=== PATIENT | female | born 1935 | race Caucasian/White ===

== ENCOUNTER 2018-07-01 10:51 | Inpatient (IN) | payer MEDICARE, BC ==
[2018-07-01] VITALS (10 sets, daily range): BP systolic 112–150; BP diastolic 55–76; PULSE 82–91; TEMP 98.2–99.1
[~2018-07-01] VITALS: Ht 152.4 cm; Wt 81.7 kg
[~2018-07-01 10:51] MED LIST: ASPIRIN 81M81 MG/TA2 PO; ASPIRIN E.C. 8181 MG PO; CORDARONE200 MG/TAB PO; FLONASEALLERGY NS; K-DUR 10 MEQ T10 MEQ PO; LASIX 20MG TABL20 MG PO; MAG-OX 400400 MG/TAB PO; MULTIVITAMIN1 CTB PO; NAPROSYN500 MG PO; NEULASTA 66 MG/0.6 M SC; PERSERVISION; PRESERVISION1 SGL PO; PRINIVIL2.5 MG PO; PRINIVIL20 MG PO; TOPROL XL 25MG25 MG PO; TOPROL XL 50MG50 MG PO; TYLENOL 325MG325 MG PO; XARELTO15 MG PO; ZOFRAN 4MG T4 MG/TAB PO
[2018-07-02] VITALS (14 sets, daily range): BP systolic 102–152; BP diastolic 50–98; PULSE 74–86; TEMP 97.6–98.4
[2018-07-02 05:50] LABS: BASO % 0.1 % (0.0-2.0); EOS # 0.1 (0.0-0.7); EOS % 1.6 % (0-4.0); GRAN # 6.8 (1.4-6.5); GRAN % 75.6 % (42.2-75.2); HEMOGLOBIN 12.2 g/dl (12.5-16.0); LYMPH # 1.3 (1.2-3.4); LYMPH % 14.1 % (20.0-51.0); MEAN CELL VOLUME 88 fl (80.0-100.0); MEAN CORPUSCULAR HEMOGLOBIN 29 pg (27.0-31.0); MEAN CORPUSCULAR HGB CONC 33 g/dl (33.0-37.0); MEAN PLATELET VOLUME 11.9 fl (7.4-10.4); MONO # 0.8 (0.1-0.6); MONO % 8.3 % (1.7-9.3); PLATELET COUNT 172 K/mm3 (130-400); RED BLOOD COUNT 4.16 M/mm3 (4.10-5.30); REDCELL DISTRIBUTION WIDTH-CV 14.3 % (11.5-14.5)
[2018-07-02 05:54] LABS: HEMATOCRIT 36.6 % (37.0-47.0)
[2018-07-02 05:58] LABS: ALBUMIN 3.1 gm/dL (3.5-5.0); BILIRUBIN,TOTAL 1.7 mg/dL (0.0-1.0); CALCIUM 8.1 mg/dL (8.4-10.2); CREATININE, serum 0.59 mg/dL (0.52-1.25); POTASSIUM 3.6 mmol/L (3.4-5.0); TOTAL PROTEIN 6.5 gm/dL (6.4-8.2)
[2018-07-02 06:00] LABS: INR 1.2 (0.8-3.0); PROTHROMBIN TIME 13.7 SECONDS (9.7-12.8)
[2018-07-02 06:07] LABS: BILIRUBIN,DIRECT 0.6 mg/dL (0.0-0.4)
[2018-07-03 04:04] VITALS: BP 130/54; PULSE 86; TEMP 99.1
[2018-07-03 06:02] LABS: BASO % 0.1 % (0.0-2.0); EOS # 0.1 (0.0-0.7); EOS % 1.9 % (0-4.0); GRAN # 4.9 (1.4-6.5); GRAN % 71.2 % (42.2-75.2); HEMATOCRIT 34.8 % (37.0-47.0); HEMOGLOBIN 11.2 g/dl (12.5-16.0); LYMPH # 1.1 (1.2-3.4); MEAN CELL VOLUME 89 fl (80.0-100.0); MEAN CORPUSCULAR HEMOGLOBIN 29 pg (27.0-31.0); MEAN CORPUSCULAR HGB CONC 32 g/dl (33.0-37.0); MONO # 0.7 (0.1-0.6); MONO % 10.5 % (1.7-9.3); PLATELET COUNT 188 K/mm3 (130-400); RED BLOOD COUNT 3.92 M/mm3 (4.10-5.30); REDCELL DISTRIBUTION WIDTH-CV 14.4 % (11.5-14.5)
[2018-07-03 06:17] LABS: ALBUMIN 2.8 gm/dL (3.5-5.0); BILIRUBIN,TOTAL 0.9 mg/dL (0.0-1.0); CALCIUM 8.1 mg/dL (8.4-10.2); CREATININE, serum 0.61 mg/dL (0.52-1.25); POTASSIUM 3.8 mmol/L (3.4-5.0); TOTAL PROTEIN 6.1 gm/dL (6.4-8.2)
[2018-07-03 09:00] VITALS: BP 105/53; PULSE 80; TEMP 98.7
[2018-07-03 13:00] VITALS: BP 132/70; PULSE 79; TEMP 98.3
[2018-07-03 16:00] VITALS: BP 108/58; PULSE 78; TEMP 98.1
[2018-07-03 19:23] VITALS: BP 107/42; PULSE 76; TEMP 98.2
[2018-07-04 04:07] VITALS: BP 135/60; PULSE 69; TEMP 98.2
[2018-07-04 05:53] LABS: BASO % 0.3 % (0.0-2.0); EOS # 0.3 (0.0-0.7); EOS % 4.5 % (0-4.0); GRAN # 4.4 (1.4-6.5); GRAN % 66.2 % (42.2-75.2); LYMPH # 1.2 (1.2-3.4); LYMPH % 17.7 % (20.0-51.0); MEAN CELL VOLUME 89 fl (80.0-100.0); MEAN CORPUSCULAR HEMOGLOBIN 29 pg (27.0-31.0); MEAN CORPUSCULAR HGB CONC 32 g/dl (33.0-37.0); MEAN PLATELET VOLUME 11.7 fl (7.4-10.4); MONO # 0.7 (0.1-0.6); MONO % 10.8 % (1.7-9.3); PLATELET COUNT 206 K/mm3 (130-400); RED BLOOD COUNT 3.86 M/mm3 (4.10-5.30); REDCELL DISTRIBUTION WIDTH-CV 14.4 % (11.5-14.5)
[2018-07-04 05:57] LABS: HEMATOCRIT 34.2 % (37.0-47.0)
[2018-07-04 06:03] LABS: ALBUMIN 2.8 gm/dL (3.5-5.0); BILIRUBIN,TOTAL 0.6 mg/dL (0.0-1.0); CALCIUM 8.2 mg/dL (8.4-10.2); CREATININE, serum 0.57 mg/dL (0.52-1.25); POTASSIUM 3.3 mmol/L (3.4-5.0); TOTAL PROTEIN 6.1 gm/dL (6.4-8.2)
[2018-07-04 08:15] VITALS: BP 109/74; PULSE 77; TEMP 97.8
[2018-07-04 12:13] VITALS: BP 122/73; PULSE 77; TEMP 97.7
[2018-07-04 16:07] VITALS: BP 124/57; PULSE 75; TEMP 98.2
[2018-07-04 19:45] VITALS: BP 137/55; PULSE 98; TEMP 98.4
[2018-07-04 23:55] VITALS: BP 126/46; PULSE 75; TEMP 99.1
[2018-07-05 04:09] VITALS: BP 128/55; PULSE 74; TEMP 98.3
[2018-07-05 06:17] LABS: CALCIUM 8.2 mg/dL (8.4-10.2); CREATININE, serum 0.56 mg/dL (0.52-1.25); MAGNESIUM 1.9 mg/dL (1.6-2.3); POTASSIUM 4.1 mmol/L (3.4-5.0)
[2018-07-05 07:33] VITALS: BP 119/54; PULSE 74; TEMP 98.6
== END 2018-07-05 11:00 | disposition home or self-care (01) | DRG 417 ==
LOC: SURG 11:58 → MEDICAL 14:45 → SURG 07-04 03:00
PROVIDERS: Hospitalist; Internal Medicine; Physician Assistant; Surgery
PROC: BF131ZZ Fluoroscopy of Gallbladder and Bile Ducts using Low Osmolar Contrast (ICD-10-PCS; 2018-07-01)
PROC: 0F798DZ Dilation of Common Bile Duct with Intraluminal Device, Via Natural or Artificial Opening Endoscopic (ICD-10-PCS; 2018-07-01)
PROC: 0FT44ZZ Resection of Gallbladder, Percutaneous Endoscopic Approach (ICD-10-PCS; principal; 2018-07-02 10:00)
DX: K80.66 Calculus of gallbladder and bile duct with acute and chronic cholecystitis without obstruction (principal); K85.10 Biliary acute pancreatitis without necrosis or infection; I42.0 Dilated cardiomyopathy; I50.22 Chronic systolic (congestive) heart failure; K80.12 Calculus of gallbladder with acute and chronic cholecystitis without obstruction; E87.6 Hypokalemia; I34.0 Nonrheumatic mitral (valve) insufficiency; I48.91 Unspecified atrial fibrillation; Z79.01 Long term (current) use of anticoagulants; Z85.72 Personal history of non-Hodgkin lymphomas; Z85.030 Personal history of malignant carcinoid tumor of large intestine; Z85.41 Personal history of malignant neoplasm of cervix uteri
CPT/HCPCS: 99222-AI; 99232-AI; 99239; A4216; C1769; C2625; J1170; J1644; J2185; J2405; J2704; J3010; J7030; Q9967

== ENCOUNTER 2018-07-30 12:48 | Day surgery (SDC) | payer MEDICARE, BC ==
[2018-07-30] VITALS (8 sets, daily range): BP systolic 108–137; BP diastolic 63–92; PULSE 65–82; TEMP 97.4–97.8
[~2018-07-30] VITALS: Ht 152.4 cm; Wt 78.8 kg
--- NOTE | 2018-07-30 14:45 | NUR ---
Patient arrives to [facility] via cart, accompanied by Endo JODIE Fulton. She is alert and oriented. She ambulates with standby assist to chair in room. She denies any pain or nausea. Monitoring applied - VSS and WNL on room air. Confirmed with Dr. Agudelo that patient may have PO intake and may discharge at 1645 if no complications develop. Patient is offered and receives water to drink - tolerating well. Daughter brought to the bedside. Call light in reach. Will continue to monitor.
--- NOTE | 2018-07-30 15:00 | NUR ---
VSS and WNL on room air. Denies any pain, nausea, or need at this time.
--- NOTE | 2018-07-30 15:15 | NUR ---
VSS and WNL on room air. Denies any pain, nausea, or need at this time.
--- NOTE | 2018-07-30 15:30 | NUR ---
Dr. Agudelo at the bedside.
--- NOTE | 2018-07-30 15:30 | NUR ---
VSS and WNL on room air. Denies any pain, nausea, or need.
--- NOTE | 2018-07-30 15:45 | NUR ---
VSS and WNL on room air. Denies any pain, nausea, or need.
--- NOTE | 2018-07-30 16:15 | NUR ---
VSS and WNL on room air. Denies any pain, nausea, or need.
--- NOTE | 2018-07-30 16:45 | NUR ---
VSS and WNL on room air. Denies any pain, nausea, or need. Discharge criteria has been met. Port de-accessed with needle intact, heparin flush utilized, and without complication. Discharge instructions discussed, denies any questions, and verbalizes understanding. Changing to clothing with help of her daughter.
--- NOTE | 2018-07-30 16:55 | NUR ---
Patient escorted to the exit via wheelchair. Discharged to home with ride in private vehicle at 1655.
== END 2018-07-30 16:55 | disposition home or self-care (01) ==
LOC: SDCO 12:48
DX: K83.1 Obstruction of bile duct (principal); K83.8 Other specified diseases of biliary tract; E66.9 Obesity, unspecified; Z85.038 Personal history of other malignant neoplasm of large intestine; Z85.42 Personal history of malignant neoplasm of other parts of uterus
CPT/HCPCS: C1769; J1644; J2704; J7120; Q9967

== ENCOUNTER → 2019-08-30 | Outpatient (CLI) | payer MEDICARE, BC ==
[~2019-08-30] VITALS: Ht 152.4 cm; Wt 85.9 kg
[2019-08-30 09:05] VITALS: BP 162/99; PULSE 89
[2019-08-30 09:50] VITALS: BP 137/87; PULSE 74
== END ==
LOC: COL.RAD 08:52
DX: C83.38 Diffuse large B-cell lymphoma, lymph nodes of multiple sites (principal)

== ENCOUNTER 2019-12-19 10:59 | Inpatient (IN) | payer MEDICARE, BC ==
[2019-12-19] VITALS (7 sets, daily range): BP systolic 92–119; BP diastolic 53–79; PULSE 71–79; TEMP 98.1–98.3
[~2019-12-19] VITALS: Ht 152.4 cm; Wt 79.5 kg
[2019-12-19 11:38] LABS: HEMOGLOBIN 12.3 g/dl (12.5-16.0); MEAN CELL VOLUME 93 fl (80.0-100.0); MEAN CORPUSCULAR HEMOGLOBIN 30 pg (27.0-31.0); MEAN CORPUSCULAR HGB CONC 32 g/dl (33.0-37.0); PLATELET COUNT 59 K/mm3 (130-400); RED BLOOD COUNT 4.08 M/mm3 (4.10-5.30); REDCELL DISTRIBUTION WIDTH-CV 21.4 % (11.5-14.5)
[2019-12-19 11:48] LABS: ALBUMIN 4.1 gm/dL (3.5-5.0); BILIRUBIN,TOTAL 0.8 mg/dL (0.0-1.0); CALCIUM 8.7 mg/dL (8.4-10.2); CREATININE, serum 0.72 (0.52-1.25); TOTAL PROTEIN 7.1 gm/dL (6.4-8.2)
[2019-12-19 12:06] LABS: BAND 19 % (0-10); EOSINOPHIL 2 % (0-4); LYMPHOCYTE 3 % (20.0-51.0); MYELOCYTE 1 % (0-0); NEUTROPHILS 69 % (42.0-75.2)
[2019-12-19 12:07] LABS: ANISOCYTOSIS 2+; PLATELET ESTIMATE DECREASED (NORMAL)
[2019-12-19 13:18] LABS: MUCOUS Present /lpf; PH 5 (5-8); SQUAMOUS EPITHELIAL 0-2 /hpf; URINE APPEARANCE Clear; URINE BACTERIA Rare /hpf; URINE BILIRUBIN Negative (NEGATIVE); URINE BLOOD 3+ (NEGATIVE); URINE COLOR Yellow; URINE GLUCOSE Negative (NEGATIVE); URINE KETONE Negative (NEGATIVE); URINE LEUKOCYTE ESTERASE Trace (NEGATIVE); URINE NITRATE Negative (NEGATIVE); URINE PROTEIN(semi-quant) Negative (NEGATIVE); URINE RBC >50 /hpf; URINE UROBILINOGEN Negative (NEGATIVE)
[2019-12-19 14:52] LABS: COLLECTION METHOD CATHETER
[2019-12-20] VITALS (7 sets, daily range): BP systolic 106–135; BP diastolic 40–58; PULSE 74–92; TEMP 97.7–98.4
[2019-12-20 07:08] LABS: HEMOGLOBIN 10.5 g/dl (12.5-16.0); MEAN CELL VOLUME 95 fl (80.0-100.0); MEAN CORPUSCULAR HEMOGLOBIN 30 pg (27.0-31.0); MEAN CORPUSCULAR HGB CONC 32 g/dl (33.0-37.0); MEAN PLATELET VOLUME 13.9 fl (7.4-10.4); PLATELET COUNT 58 K/mm3 (130-400); RED BLOOD COUNT 3.51 M/mm3 (4.10-5.30); REDCELL DISTRIBUTION WIDTH-CV 22.3 % (11.5-14.5)
[2019-12-20 07:19] LABS: ALBUMIN 3.3 gm/dL (3.5-5.0); BILIRUBIN,TOTAL 0.5 mg/dL (0.0-1.0); CALCIUM 7.8 mg/dL (8.4-10.2); CREATININE, serum 0.61 (0.52-1.25); TOTAL PROTEIN 6.1 gm/dL (6.4-8.2)
[2019-12-20 07:22] LABS: HEMATOCRIT 33.3 % (37.0-47.0)
[2019-12-20 08:02] LABS: ANISOCYTOSIS 2+; BAND 33 % (0-10); LYMPHOCYTE 2 % (20.0-51.0); NEUTROPHILS 64 % (42.0-75.2); PLATELET ESTIMATE DECREASED (NORMAL)
[2019-12-21 03:34] VITALS: BP 135/94; PULSE 90; TEMP 97.6
[2019-12-21 07:06] LABS: MEAN CELL VOLUME 96 fl (80.0-100.0); MEAN CORPUSCULAR HEMOGLOBIN 31 pg (27.0-31.0); MEAN CORPUSCULAR HGB CONC 32 g/dl (33.0-37.0); MEAN PLATELET VOLUME 12.6 fl (7.4-10.4); PLATELET COUNT 50 K/mm3 (130-400); RED BLOOD COUNT 3.22 M/mm3 (4.10-5.30); REDCELL DISTRIBUTION WIDTH-CV 22.5 % (11.5-14.5)
[2019-12-21 07:10] LABS: ALBUMIN 3.1 gm/dL (3.5-5.0); BILIRUBIN,TOTAL 0.5 mg/dL (0.0-1.0); CALCIUM 7.5 mg/dL (8.4-10.2); CREATININE, serum 0.56 (0.52-1.25); POTASSIUM 3.8 mmol/L (3.4-5.0); TOTAL PROTEIN 5.6 gm/dL (6.4-8.2)
[2019-12-21 07:12] LABS: HEMATOCRIT 30.9 % (37.0-47.0)
[2019-12-21 07:19] VITALS: BP 106/47; PULSE 86; TEMP 98.2
[2019-12-21 07:57] LABS: BAND 9 % (0-10); LYMPHOCYTE 2 % (20.0-51.0); METAMYELOCYTE 5 % (0-0); NEUTROPHILS 81 % (42.0-75.2); PLATELET ESTIMATE DECREASED (NORMAL)
[2019-12-21 07:58] LABS: ANISOCYTOSIS 2+
[2019-12-21 12:18] VITALS: BP 118/58; PULSE 76; TEMP 98
[2019-12-21] MEDS ORDERED: LEVAQUIN 750MG750 M1 PO (12:40)
== END 2019-12-21 13:54 | disposition home or self-care (01) | DRG 660 ==
LOC: COL.ER 10:59 → SURG 11:25
PROVIDERS: Emergency Medicine; Physician Assistant; Urology; ADMIT Hospitalist
PROC: 0T778DZ Dilation of Left Ureter with Intraluminal Device, Via Natural or Artificial Opening Endoscopic (ICD-10-PCS; principal; 2019-12-19 15:00)
PROC: BT1F1ZZ Fluoroscopy of Left Kidney, Ureter and Bladder using Low Osmolar Contrast (ICD-10-PCS; 2019-12-19 15:00)
DX: N13.6 Pyonephrosis (principal); I42.8 Other cardiomyopathies; I50.22 Chronic systolic (congestive) heart failure; C78.5 Secondary malignant neoplasm of large intestine and rectum; I34.0 Nonrheumatic mitral (valve) insufficiency; D69.6 Thrombocytopenia, unspecified; D63.8 Anemia in other chronic diseases classified elsewhere; R79.89 Other specified abnormal findings of blood chemistry; M19.90 Unspecified osteoarthritis, unspecified site; B96.20 Unspecified Escherichia coli [E. coli] as the cause of diseases classified elsewhere; I11.0 Hypertensive heart disease with heart failure; B95.2 Enterococcus as the cause of diseases classified elsewhere; I48.91 Unspecified atrial fibrillation; Z79.01 Long term (current) use of anticoagulants; Z85.038 Personal history of other malignant neoplasm of large intestine; Z90.89 Acquired absence of other organs; Z90.49 Acquired absence of other specified parts of digestive tract; Z98.51 Tubal ligation status; Z87.891 Personal history of nicotine dependence; Z95.810 Presence of automatic (implantable) cardiac defibrillator; Z86.73 Personal history of transient ischemic attack (TIA), and cerebral infarction without residual deficits; Z85.72 Personal history of non-Hodgkin lymphomas
CPT/HCPCS: 99223-AI; 99232-AI; 99239; C1769; C2617; J0690; J0696; J1100; J1885; J2270; J2405; J2704; J3010; J7030; Q9967

== ENCOUNTER 2020-01-10 10:00 | Day surgery (SDC) | payer MEDICARE, BC ==
[~2020-01-10] VITALS: Ht 160 cm; Wt 79.1 kg
[~2020-01-10 10:00] MED LIST changes: +LEVAQUIN 750MG750 M1 PO
[2020-01-10 11:17] VITALS: BP 131/82; PULSE 91; TEMP 98.2
[2020-01-10 13:23] VITALS: TEMP 97.9
[2020-01-10 13:35] VITALS: BP 126/58; PULSE 63
--- NOTE | 2020-01-10 13:35 | NUR ---
Patient returns to room 8 per cart from PACU accompanied by Keren FELICIANO and is awake and alert. Temp 97.7 and room air sats 96%. IV fluids infusing via port a catheter right chest. Siderails up x2 and call light in reach. Daughter in room. Patient is taking orange juice. Denies pain or nausea.
[2020-01-10 13:50] VITALS: BP 119/49; PULSE 70
--- NOTE | 2020-01-10 13:50 | NUR ---
Room air sats 96%. Watching TV.
[2020-01-10 14:05] VITALS: BP 94/44; PULSE 61
--- NOTE | 2020-01-10 14:05 | NUR ---
Resting and denies pain or nausea.
[2020-01-10 14:20] VITALS: BP 108/89; PULSE 69
--- NOTE | 2020-01-10 14:20 | NUR ---
Resting and continues to sip on water. Room air sats 98%.
--- NOTE | 2020-01-10 14:30 | NUR ---
Port a catheter deaccessed and site flushed with Heparin and normal saline per protocol. Assisted up to the bedside commode and voids pink tinged urine. Assisted with dressing.
--- NOTE | 2020-01-10 14:45 | NUR ---
Given dismissal instructions and voices understanding of these. Provided follow up appointment date time. Patient and daughter verbalize understanding of these.
--- NOTE | 2020-01-10 14:51 | NUR ---
Patient dismissed to home driven by daughter and taken to the front door per wheelchair and assisted into car by this RN.
== END 2020-01-10 14:51 | disposition home or self-care (01) ==
LOC: SDCO 10:00
DX: N20.1 Calculus of ureter (principal); I11.0 Hypertensive heart disease with heart failure; I50.9 Heart failure, unspecified; I27.20 Pulmonary hypertension, unspecified; I48.91 Unspecified atrial fibrillation; I42.9 Cardiomyopathy, unspecified; M19.90 Unspecified osteoarthritis, unspecified site; D69.6 Thrombocytopenia, unspecified; Z91.048 Other nonmedicinal substance allergy status; Z79.02 Long term (current) use of antithrombotics/antiplatelets; Z90.49 Acquired absence of other specified parts of digestive tract; Z90.79 Acquired absence of other genital organ(s); Z95.0 Presence of cardiac pacemaker; Z87.891 Personal history of nicotine dependence; Z86.73 Personal history of transient ischemic attack (TIA), and cerebral infarction without residual deficits; Z85.038 Personal history of other malignant neoplasm of large intestine; Z92.21 Personal history of antineoplastic chemotherapy
CPT/HCPCS: C1769; J0690; J1100; J1644; J1885; J2405; J2704; J3010; J7120

== ENCOUNTER 2020-04-12 21:13 | Emergency (ER) | payer MEDICARE, BC ==
[~2020-04-12] VITALS: Ht 152.4 cm; Wt 75.0 kg
[2020-04-12 21:32] VITALS: TEMP 97.5
[2020-04-12 22:21] LABS: BASO % 0.2 % (0.0-2.0); EOS # 0.3 (0.0-0.7); GRAN # 3.4 (1.4-6.5); GRAN % 52.2 % (42.2-75.2); HEMOGLOBIN 11.6 g/dl (12.5-16.0); LYMPH % 30.2 % (20.0-51.0); MEAN CELL VOLUME 88 fl (80.0-100.0); MEAN CORPUSCULAR HEMOGLOBIN 28 pg (27.0-31.0); MEAN CORPUSCULAR HGB CONC 32 g/dl (33.0-37.0); MEAN PLATELET VOLUME 10.9 fl (7.4-10.4); MONO # 0.8 (0.1-0.6); MONO % 12.2 % (1.7-9.3); PLATELET COUNT 135 K/mm3 (130-400); REDCELL DISTRIBUTION WIDTH-CV 14.8 % (11.5-14.5)
[2020-04-12 22:29] LABS: HEMATOCRIT 35.9 % (37.0-47.0)
[2020-04-12 22:31] LABS: INR 1.4 (0.8-3.0)
[2020-04-12 22:34] LABS: ALANINE AMINOTRANSFERASE 11 U/L (4-34); ALBUMIN 3.7 gm/dL (3.5-5.0); ALKALINE PHOSPHATASE 94 U/L (50-136); ANION GAP 5 mmol/L (7-16); AST,SGOT 23 U/L (15-37); BILIRUBIN,TOTAL 0.5 mg/dL (0.0-1.0); BLOOD UREA NITROGEN 16 mg/dL (7-17); C-REACTIVE PROTEIN 1.2 mg/dL (0.0-0.9); CALCIUM 8.4 mg/dL (8.4-10.2); CARBON DIOXIDE 27 mmol/L (22-30); CHLORIDE 104 mmol/L (98-107); CREATININE, serum 0.62 (0.52-1.25); GLUCOSE 91 mg/dL (74-106); POTASSIUM 3.9 mmol/L (3.4-5.0); SODIUM 136 mmol/L (137-145); TOTAL PROTEIN 6.7 gm/dL (6.4-8.2)
[2020-04-12 22:50] LABS: TROPONIN-I < 0.012 ng/mL (0.000-0.035)
[2020-04-13 00:59] LABS: COLLECTION METHOD CLEAN CATCH
[2020-04-13 01:07] LABS: MUCOUS Present /lpf; PH 5 (5-8); SQUAMOUS EPITHELIAL 0-2 /hpf; URINE APPEARANCE Hazy; URINE BACTERIA Rare /hpf; URINE BILIRUBIN Negative (NEGATIVE); URINE BLOOD 3+ (NEGATIVE); URINE COLOR Yellow; URINE GLUCOSE Negative (NEGATIVE); URINE KETONE Trace (NEGATIVE); URINE LEUKOCYTE ESTERASE 3+ (NEGATIVE); URINE NITRATE Negative (NEGATIVE); URINE PROTEIN(semi-quant) Negative (NEGATIVE); URINE RBC 20-50 /hpf; URINE UROBILINOGEN Negative (NEGATIVE)
[2020-04-13 16:15] VITALS: BP 118/78; PULSE 85
[2020-04-14] MEDS ORDERED: MACROBID 1100 MG/CAP PO (13:05)
== END 2020-04-13 16:45 | disposition home or self-care (01) ==
LOC: COL.ER 21:13
PROVIDERS: Emergency Medicine
DX: N93.8 Other specified abnormal uterine and vaginal bleeding (principal); I48.91 Unspecified atrial fibrillation; Z79.01 Long term (current) use of anticoagulants; Z90.710 Acquired absence of both cervix and uterus; Z85.44 Personal history of malignant neoplasm of other female genital organs
CPT/HCPCS: A9585; Q9967

== ENCOUNTER 2023-06-16 12:18 | Inpatient (IN) | payer MEDICARE, BC ==
[~2023-06-16] VITALS: Ht 152.4 cm; Wt 72.8 kg
[~2023-06-16 12:18] MED LIST changes: +MACROBID 1100 MG/CAP PO; +NATURAL IRON65 MG; +NORCO 325 MG-51 TAB PO; +SYSTANE 0.4%-0.1 SOL OU; -TYLENOL 325MG325 MG PO; +TYLENOL 500MG500 MG PO
--- NOTE | 2023-06-16 15:37 | NUR ---
NEW PRIVACY PASSWORD GIVEN TO DAUGHTER MICKEY
[2023-06-16 16:42] VITALS: BP 111/51; PULSE 65; TEMP 97.4
[2023-06-16 17:06] VITALS: BP 121/63; PULSE 69; TEMP 98
--- NOTE | 2023-06-16 17:57 | NUR ---
PT ALERT AND ORIENTED X4. VITAL SIGNS STABLE. SHIFT ASSESSMENT COMPLETE, SEE DOCUMENTATION. PT WAS NOT ABLE TO BE ASSESSED BY PT, OT TODAY SHE WAS TRANSFERRED TO THE UNIT AROUND 1445. NO SKIN ISSUES NOTED AND PT DENIES PAIN. HER BLOCK FROM SURGERY HAS WORN OFF SUBSTANTIALLY AND SHE IS ABLE TO FEEL WHEN I TOUCH HER TOES ON THE RIGHT. SHE ALSO CAN NOW WIGGLE HER TOES. THERE IS A BULKY DRESSING TO HER RIGHT LOWER EXTREMITY, WRAPPED IN KYRA BANDAGE. I WAS TOLD BY SURGUCAL NURSE IN REPORT THAT PT WAS ABLE TO GET HER UP TO BEDSIDE COMMODE TO TOILET. I HAVE NOT WITNESSED HER GUT UP OUT OF BED. SHE IS ACCOMPANIED BY HER DAUGHTER WHO IS AT THE BEDSIDE.SHE IS VERY GOOD ABOUT DOING HER EXECISES IN BED TO HELP WITH MOBILITY. SHE IS A VERY PLEASANT WOMAN. CALL LIGHT WITHIN REACH, BED ALARM SET. DENIES ANY FURTHER NEEDS AT THIS TIME.
[2023-06-16 19:00] VITALS: BP_SYST 121
--- NOTE | 2023-06-16 19:23 | NUR ---
RECEIVED CHANGE OF SHIFT REPORT FROM DAY SHIFT RN.
[2023-06-17 05:15] VITALS: BP 114/68; PULSE 62; TEMP 98
[2023-06-17 07:07] VITALS: BP_SYST 114
--- NOTE | 2023-06-17 07:08 | NUR ---
Shift report received from night RN. No events reported overnight. Pt sleeping supine in bed w/ even & unlabored resps. Call light in reach. Fall precautions in place.
--- NOTE | 2023-06-17 07:17 | NUR ---
CHANGE OF SHIFT REPORT GIVEN TO DAY SHIFT RNTENZIN. PATIENT UP TO BSC X1 ASST WITH NO PROBLEMS PERFORMING PIVOT TRANSFERS WITH GAIT BELT ON AND USING WHEELED WALKER. PATIENT TOOK HYDROCODONE FOR C/O RLE PAIN, REFUSED TO ELEVATE RLE REPORTING SHE HAD LESS DISCOMFORT TO RLE IF IT WAS NOT ELEVATED AND REFUSED ICE PACK STATING ICE MADE HER FEEL COLD.
--- NOTE | 2023-06-17 09:29 | NUR ---
Portacath cap changed completed. Port flushing well/easily w/ noted blood return. Dressing is CDI.
--- NOTE | 2023-06-17 10:16 | NUR ---
Pt sitting up in her wheelchair waiting for PT. Pt reporting that her pain is starting is to increase. [place] given per PRN order. SBA provided as pt stood to use to the toilet. Other needs denied. Call light in her reach
--- NOTE | 2023-06-17 10:57 | NUR ---
Pt is off the unit w/ PT
--- NOTE | 2023-06-17 11:24 | NUR ---
Several visit attempts; Patient sleeping, Bending Machine Operator left card offering the availability of [facility] at our hospital, signed by Bending Machine Operator and offering God's blessings.
--- NOTE | 2023-06-17 11:56 | NUR ---
Pt & OT reporting of possible rash or skin chafing to left inner thigh. Skin is red, flat/smooth, & does not bruce. Pt denies any itching, burning, stinging. This area has been present x 1 week per pt. She thinks it may have been caused by her brand of disposable diapers that have rubbed against her skin. Will continue to monitor.
--- NOTE | 2023-06-17 13:52 | NUR ---
Pt is back in her room after working w/ PT. Pt sitting up in recliner w/ BLE elevated on the footrest. Pt requesting a pain pill. Will administer once dose is next due. Skin to left inner thigh assessed by Dr. Fong. For now will apply skin barrier & will monitor for changes. Pt has her call light in reach. Fall precautions in place.
--- NOTE | 2023-06-17 14:56 | NUR ---
Has lack of transportation kept you from medical appts, meetings, work, or from getting things needed for daily living? NO How often do you feel lonely or isolated from those around you? NEVER Over the past 5 days, how much of the time has pain made it hard for you to sleep? OCCASIONALLY Over the past 5 days, how often have you limited your participation in therapy due to pain? RARELY/NOT AT ALL Over the past 5 days, how often have you limited your day-to-day activities because of pain? RARELY/NOT AT ALL Have you had 2 or more falls in the past year or any fall with an injury? YES Did you have major surgery during the 100 days prior to admission? YES
--- NOTE | 2023-06-17 16:39 | NUR ---
Allied Health Teacher met with patient to welcome her to the rehab unit and complete initial intake. Patient stated she lives alone in [place] and sees Dr. Lainez for primary care. Patient has her medications delivered to her home by the pharmacy in [facility]. Patient does not drive and she relies on either her daughters or one of her nieces to take her to appointments. Patient stated she has two walkers at home and is normally independent with ADLS. Patient has DPOA-HC in EMR which designates Anay Devine "Janelle". Patient advised Janelle is her main point of contact. CHRIS gave patient a copy of her team conference notes and advised there is no discharge date set at this time. CHRIS then contacted patient's daughter, Janelle to discuss stay on IPR unit and what to expect. CHRIS scheduled family meeting for Thursday at 1030.
[2023-06-17 16:46] VITALS: BP 103/49; PULSE 72; TEMP 97.1
--- NOTE | 2023-06-17 18:23 | NUR ---
Pt resting supine in bed after eating dinner independently. Granddaughters were here to visit. Pt denies pain or discomfort. RLE splint CDI. Pt denies other needs. Call light in reach. Bed alarm is on.
[2023-06-17 18:30] VITALS: BP_SYST 103
--- NOTE | 2023-06-17 21:00 | NUR ---
PT A&O LAYING IN BED. NO C/O PAIN AT THIS TIME. SPLINT/KYRA TO RLE CDI. FALL PRECAUTIONS IN PLACE & CALL LIGHT IN REACH. DENYING FURTHER NEEDS.
[2023-06-18 05:42] VITALS: BP 127/58; PULSE 62; TEMP 98
[2023-06-18 07:00] VITALS: BP_SYST 127
--- NOTE | 2023-06-18 07:31 | NUR ---
RECIEVED REPORT FROM DIRECTOR PACKAGING RN. PT UP WORKING WITH PT.
--- NOTE | 2023-06-18 09:08 | NUR ---
Pt alert and oriented. Up early this moring, to use BSC. Vital signs stable. Shift assessmet complete, see docuentation. Shift assessment complete, c/o right knee pain. Rated 2/10 in knee. Medicated per emar. Denies any further needs at this time. Call light within reach, bed alarm set. Even unlabored respr.
--- NOTE | 2023-06-18 14:18 | NUR ---
ASSUMED PT CARE FROM BOBBI FELICIANO @[id number].
[2023-06-18 16:37] VITALS: BP 110/66; PULSE 65; TEMP 97.9
--- NOTE | 2023-06-18 19:00 | NUR ---
PT RESTING IN BED. NO NEEDS AT THIS TIME. CALL LIGHT IN REACH. BED ALARM SET.
[2023-06-19 05:04] VITALS: BP 134/75; PULSE 65; TEMP 97.5
[2023-06-19 07:04] VITALS: BP_SYST 134
[2023-06-19 13:09] LABS: BASO % 0.3 % (0.0-2.0); EOS # 0.2 K/mm3 (0.0-0.7); EOS % 2.4 % (0.0-4.0); GRAN # 5.5 K/mm3 (1.4-6.5); GRAN % 70.1 % (42.2-75.2); HEMOGLOBIN 12.7 g/dl (12.5-16.0); LYMPH # 1.5 K/mm3 (1.2-3.4); LYMPH % 18.5 % (20.0-51.0); MEAN CELL VOLUME 89 fl (80.0-100.0); MEAN CORPUSCULAR HEMOGLOBIN 30 pg (27-31); MEAN CORPUSCULAR HGB CONC 33 g/dl (33.0-37.0); MEAN PLATELET VOLUME 11.5 fl (7.4-10.4); MONO # 0.7 K/mm3 (0.1-0.6); MONO % 8.3 % (1.7-9.3); PLATELET COUNT 182 K/mm3 (130-400); RED BLOOD COUNT 4.25 M/mm3 (4.10-5.30); REDCELL DISTRIBUTION WIDTH-CV 14.6 % (11.5-14.5)
[2023-06-19 13:23] LABS: CALCIUM 8.5 mg/dL (8.4-10.2); CREATININE, serum 0.72 mg/dL (0.57-1.11); POTASSIUM 4.2 mmol/L (3.5-4.5)
--- NOTE | 2023-06-19 15:40 | NUR ---
Scheduling Coordinator met with Patient at bedside to review progress towards treatment goals. Patient states that her goal is to go home and she feels that it will take some time to get to that point. Scheduling Coordinator briefed SW role in IPR as Patient states she does not remember do to being "out of it" when initial SW intake was conducted. Patient acknowledges and states to have no concerns at this time.
[2023-06-19 16:49] VITALS: BP 125/55; PULSE 73; TEMP 98
[2023-06-19 21:00] VITALS: BP_SYST 125
--- NOTE | 2023-06-19 21:00 | NUR ---
PT RESTING IN BED. A&O. ASSISTED TO BR. CHANGED INTO NIGHT CLOTHES. PT ABLE TO MANAGE TOILETING TASKS AND CHANGING IN TO NIGHT CLOTHES. STAFF HANDED CLOTHING TO PT. SEE MAR FOR NORCO GIVEN.. SEE SHIFT ASSESSMNET. CALL LIGHT IN REACH. BED ALARM SET.
[2023-06-20 05:20] VITALS: BP 155/81; PULSE 67; TEMP 97.6
--- NOTE | 2023-06-20 07:17 | NUR ---
RECIEVED REPORT FROM SURVEILLANCE OPERATOR RN. PT RESTING IN BED AWAKE. ASSISTED TO GET OUT OF BED. CALL LIGHT WITHIN REACH. CHAIR ALARM SET.
[2023-06-20 07:19] VITALS: BP_SYST 155
--- NOTE | 2023-06-20 11:46 | NUR ---
Pt alert and oriented. Awake early this morning, helped transfer to restroom. Vital signs stable, shift assessment complete. Pain rated 4/10 in right leg/ knee. Medicated per emar. Eats breakfast independently and is doing very well with therapies. Call light within reach, chair alarm set. Denies need for anything further.
[2023-06-20 18:06] VITALS: BP 103/58; PULSE 69; TEMP 97.9
[2023-06-20 19:00] VITALS: BP_SYST 103
[2023-06-21 06:00] VITALS: BP 132/45; PULSE 63; TEMP 98.2
[2023-06-21 07:24] VITALS: BP_SYST 132
--- NOTE | 2023-06-21 09:00 | NUR ---
PT RESTING IN BED WITH NO PAIN AT THIS TIME. PT UP TO BATHROOM, 1 ASSIST PIVOT TO W/C. PT ABLE TO MOVED RIGHT LOWER EXTREMITY, CAP REFIL LESS THAN 2. NO NEEDS AT THIS TIME, WILL CONTINUE TO MONITOR.
[2023-06-21 16:43] VITALS: BP 91/51; PULSE 64; TEMP 98.4
[2023-06-21 18:48] VITALS: BP_SYST 91
--- NOTE | 2023-06-21 20:00 | NUR ---
MOD 1 ASSIST PIVOT TRANSFER TO BSC. HAD MED LOOSE STOOL W/ VOID. NO BLOOD NOTED. BACK TO BED. PT DENIES NEED FOR PAIN MED. NO NEEDS AT THIS TIME. CALL LIGHT IN REACH. BED ALARM ASET.
[2023-06-22 05:00] VITALS: BP 147/73; PULSE 62; TEMP 97.5
[2023-06-22 06:58] VITALS: BP_SYST 147
--- NOTE | 2023-06-22 07:10 | NUR ---
Patient awake, alert and oriented. C/O pain in her right knee/ankle, PRN given as ordered. Denies shortness of breath or nausea. Able to transfer self from bed to wheelchair to bathroom and back with standby assistance. Pills taken whole. In bed, set up for breakfast, able to feed self. Denies further needs at this time. Bed in lowest position with call light within reach.
--- NOTE | 2023-06-22 12:39 | NUR ---
Admission QIM scores were reviewed by the team. Code of 3 chosen for toileting hygiene was determined by team discussion to be the most usual performance for this patient during the discharge assessment period. Code of 3 chosen for toilet transfers was determined by team discussion to be the most usual performance for this patient during the discharge assessment period. Code of 2 chosen for putting on/taking off footwear was determined by team discussion to be the most usual performance before interventions for this patient during the assessment period. Code of 4 chosen for sit to lying was determined by team discussion to be the most usual performance before interventions for this patient during the assessment period. Code of 4 chosen for lying to sitting side of bed was determined by team discussion to be the most usual performance before interventions for this patient during the assessment period. Code of 4 chosen for wheel 50 feet w/ 2 turns was determined by team discussion to be the most usual performance before interventions for this patient during the assessment period. Code of 4 chosen for wheel 150 feet was determined by team discussion to be the most usual performance before interventions for this patient during the assessment period.--PD Devan
--- NOTE | 2023-06-22 13:47 | NUR ---
Patient resting in bed after therapy, denies pain, states she is comfortable. States therapy has gone well today. Denies needs at this time, stating she would like a vanilla ensure in an hour. Ordered for patient. Bed in lowest position, call light within reach.
--- NOTE | 2023-06-22 16:06 | NUR ---
Machine Hamper Maker met with Patient at bedside to review progress towards treatment goals. Patient states that therapy is going well and she has the goal to balance long enough to conduct morning hygeine. Patient states that it went well though she has some improvment to make. Patient inquires about the family meeting on thursday. SW discussed with IPR director who confirms family meeting thursday and the anticipated discharge date for that day.
[2023-06-22 16:58] VITALS: BP 101/64; PULSE 62; TEMP 97.5
[2023-06-22 18:30] VITALS: BP_SYST 101
--- NOTE | 2023-06-22 20:00 | NUR ---
Pt A&O x4 sitting up in recliner. Denying pain. X1 pivot transfered to wheelchair & restroom. Currently back in bed & muscle rub applied to right knee, see sep. Splint/acewrap to RLE is CDI. Fall precautions in place & call light in reach. Denying further needs.
[2023-06-23 05:53] VITALS: BP 136/75; PULSE 62; TEMP 97.5
[2023-06-23 06:59] VITALS: BP_SYST 136
--- NOTE | 2023-06-23 07:00 | NUR ---
Shift report received from night RN. No events reported overnight. Pt sleeping supine in bed w/ even & unlabored resps. Pt has her call light in reach. Fall precautions in place.
[2023-06-23 07:43] LABS: BASO % 0.1 % (0.0-2.0); EOS # 0.3 K/mm3 (0.0-0.7); EOS % 3.8 % (0.0-4.0); GRAN # 4.2 K/mm3 (1.4-6.5); HEMATOCRIT 39.3 % (37.0-47.0); HEMOGLOBIN 12.6 g/dl (12.5-16.0); LYMPH # 1.7 K/mm3 (1.2-3.4); LYMPH % 24.1 % (20.0-51.0); MEAN CELL VOLUME 91 fl (80.0-100.0); MEAN CORPUSCULAR HEMOGLOBIN 29 pg (27-31); MEAN CORPUSCULAR HGB CONC 32 g/dl (33.0-37.0); MEAN PLATELET VOLUME 11.2 fl (7.4-10.4); MONO # 0.7 K/mm3 (0.1-0.6); MONO % 9.9 % (1.7-9.3); PLATELET COUNT 183 K/mm3 (130-400)
--- NOTE | 2023-06-23 07:49 | NUR ---
Pt lying supine in bed after eating a little of her breakfast. Pt not wanting to eat anymore because she "accidently put Mrs. Jones" on her scrambled eggs. Offered to re-order for pt but pt declined. Pt rates pain level at 1/10 in her R knee & R ankle. Muscle rub applied to R knee at her request per PRN order. Pt denies the need for any further interventions for pain at this time. Pt has her call light in reach. Bed alarm on.
[2023-06-23 08:02] LABS: CALCIUM 8.8 mg/dL (8.4-10.2); CREATININE, serum 0.69 mg/dL (0.57-1.11); POTASSIUM 4.4 mmol/L (3.5-4.5)
--- NOTE | 2023-06-23 08:58 | NUR ---
Pt is off the unit w/ OT
--- NOTE | 2023-06-23 12:06 | NUR ---
Pt sitting up in the recliner eating lunch independently. Tylenol given approx 40 minutes ago for R knee & R ankle pain rated at 4/10. Pt reports her pain is better. Denies any other needs at this time. Call light in her reach. Chair alarm is on.
--- NOTE | 2023-06-23 12:43 | NUR ---
Pick Up Worker contacted Patient's daughter Leonarda to brief anticipated discharge date of 06-24-23 and verify family meeting in the AM. Anay acknowledges and confirms.
--- NOTE | 2023-06-23 14:26 | NUR ---
Pt sleeping supine in bed. Resps are even & unlabored. RLE splint CDI. Pt has her call light in reach. Fall precautions in place.
--- NOTE | 2023-06-23 15:58 | NUR ---
Will lack of transportation kept you from medical appts, meetings, work, or from getting things needed for daily living? NO How often do you feel lonely or isolated from those around you? RARELY Over the past 5 days, how much of the time has pain made it hard for you to sleep? OCCASIONALLY Over the past 5 days, how often have you limited your participation in therapy due to pain? RARELY/NOT AT ALL Over the past 5 days, how often have you limited your day-to-day activities because of pain? RARELY/NOT AT ALL
[2023-06-23 16:52] VITALS: BP 101/52; PULSE 60; TEMP 98
--- NOTE | 2023-06-23 17:09 | NUR ---
Pt sitting up in bed eating dinner. She reports feeling tired & thinks this may be d/t frequent bathroom trips during the night. Pt stated she drinks more water while here than she did at home. Pt rating her RLE pain at 1/10 & denies the need for any pain interventions. Other needs denied. Call light in reach. Bed alarm is on.
[2023-06-23 18:30] VITALS: BP_SYST 101
--- NOTE | 2023-06-23 21:15 | NUR ---
PT A&O X4 SITTING UP IN W/C & ELEVATING RLE. DENYING PAIN. CHAIR ALARM ON & FALL PRECAUTIONS IN PLACE. DENYING FURTHER NEEDS.
[2023-06-24 05:19] VITALS: BP 144/78; PULSE 86; TEMP 97.4
--- NOTE | 2023-06-24 05:40 | NUR ---
PT IN BED RESTING WITH EVEN & UNLABORED RESP. NO C/O PAIN. FALL PRECAUTIONS IN PLACE & CALL LIGHT IN REACH.
[2023-06-24 06:55] VITALS: BP_SYST 144
--- NOTE | 2023-06-24 06:56 | NUR ---
Shift report received from night RN. No events reported overnight. Pt awake & resting supine in bed. Pt reports sleeping well/better overnight. She is looking forward to discharging home today but is unsure of the time because of her daughter's work schedule. Pt denies pain/discomfort. Denies other needs. Call light in her reach. Fall precautions in place.
--- NOTE | 2023-06-24 07:19 | NUR ---
Pt sitting up in bed to eat breakfast. Denies any needs. Call light in her reach. Bed alarm is on.
--- NOTE | 2023-06-24 08:47 | NUR ---
SBA provided as pt transferred from bed to wheelchair to shower. Pt showering independently after RLE splint & portacath covered to keep dry.
--- NOTE | 2023-06-24 09:06 | NUR ---
Pt sitting up in the recliner after showering. Pain/discomfort denied. Pt denies any needs at this time. Call light in her reach. Bed alarm is on.
[2023-06-24] MEDS ORDERED: NORCO 325 MG-51 TAB PO (09:14)
--- NOTE | 2023-06-24 10:44 | NUR ---
Family meeting conducted w/ pt & daughter. Also present was the MD, PT, OT, & director of elementary education/SW. The team talked about how pt has progressed from a functional standpoint. Pt/Family stated they understood. Informed them of a d/c for today, 06/24/23, which they were fine w/. Did tell them the team is recommending Home Health PT/OT. They were all fine w/ the plan. They had questions which the team answered.
--- NOTE | 2023-06-24 12:13 | NUR ---
Chief Projectionist met with Patient to discuss discharge planning and conduct Medicare IM Brief. SW discussed Patient's need for Home Health and attempted to provide Patient with Medicare.gov list of servicing providers. Patient states that Chief Projectionist needs to speak with her daughter in reference to discharge coordination and selection of HH provider. SW conducted Medicare IM Brief with Patient. Patient acknowledges brief and signs form. Original Placed in chart, Copy provided to Patient. SW attempted to contact Patient's daughter to discuss Home Health services. SW left a voicemail requesting callback.
--- NOTE | 2023-06-24 15:15 | NUR ---
Material Reprocessing Associate contacted Patient's daughter to discuss discharge planning. Material Reprocessing Associate reviewed the Medicare.gov list of servicing providers for HH, Patient's daughter selects [facility]. SW sent referral.
--- NOTE | 2023-06-24 15:17 | NUR ---
Flight Attendant/Inflight Supervisor met with Patient and provided Team Conference Notes. Patient has no concerns at this time.
--- NOTE | 2023-06-24 15:59 | NUR ---
Stable Hand was contacted by [facility] who informs this SW that they decline Patient for admission. SW sent referral to [facility].
--- NOTE | 2023-06-24 16:22 | NUR ---
Pt is up in her wheelchair gathering her belongings. Her daughter plans to arrive sometime after 1800 for discharge. Pt denies any needs at this time. Denies pain/discomfort. Call light is in her reach. Fall precautions in place.
--- NOTE | 2023-06-24 17:21 | NUR ---
Pt sitting up in bed visiting with a friend. Pain/discomfort, chest pain, shortness of breath denied. Radial site continues to be w/o hematoma or bleeding.
--- NOTE | 2023-06-24 18:12 | NUR ---
Portacath right chest deaccessed as ordered. No trauma or difficulty w/ removal. No bleeding post-removal. Bandaid placed over site. Pt's daughter is on her way to package pick up pt.
--- NOTE | 2023-06-24 18:25 | NUR ---
DC summary reviewed w/ the pt & her daughter. They had no further questions. Valuable items denied. Pt escorted off unit via wheelchair by HOOP RIVETING MACHINE OPERATOR to vehicle.
--- NOTE | 2023-06-25 11:05 | NUR ---
[place] Machine Operator Helper contacted Patient's daughter, Anay to follow-up on Home health selection. SW informed Anay that [facility] declined and this SW sent referral to [facility] as secondary preference from discussion yesterday. Anay states that [facility] has contacted her and established services.
--- NOTE | 2023-06-25 12:59 | NUR ---
Discharge QIM scores were reviewed by the team. Code of 6 chosen for oral hygiene was determined by team discussion to be the most usual performance for this patient during the discharge assessment period. Code of 4 chosen for lower body dressing was determined by team discussion to be the most usual performance for this patient during the discharge assessment period. Code of 6 chosen for sit to stand was determined by team discussion to be the most usual performance for this patient during the discharge assessment period. Code of 6 chosen for chair to bed was determined by team discussion to be the most usual performance for this patient during the discharge assessment period.--Karen Joseph, PD
== END 2023-06-24 18:27 | disposition home health service (06) | DRG 560 ==
PROVIDERS: Hospitalist; ADMIT Physical Medicine & Rehabilitation Sports Medicine
DX: S82.851D Displaced trimalleolar fracture of right lower leg, subsequent encounter for closed fracture with routine healing (principal); C78.5 Secondary malignant neoplasm of large intestine and rectum; I42.8 Other cardiomyopathies; I50.22 Chronic systolic (congestive) heart failure; R53.81 Other malaise; R26.89 Other abnormalities of gait and mobility; D64.9 Anemia, unspecified; I48.91 Unspecified atrial fibrillation; Z79.01 Long term (current) use of anticoagulants; Z95.810 Presence of automatic (implantable) cardiac defibrillator; W18.49XD Other slipping, tripping and stumbling without falling, subsequent encounter; Z92.21 Personal history of antineoplastic chemotherapy; Z87.891 Personal history of nicotine dependence; Z79.899 Other long term (current) drug therapy; Z85.72 Personal history of non-Hodgkin lymphomas; Z74.09 Other reduced mobility; R19.7 Diarrhea, unspecified; Z66 Do not resuscitate; G62.9 Polyneuropathy, unspecified
CPT/HCPCS: J1644

== ENCOUNTER 2023-08-01 20:04 | Emergency (ER) | payer MEDICARE, BC ==
[~2023-08-01] VITALS: Ht 152.4 cm; Wt 75.5 kg
[2023-08-01 20:07] VITALS: TEMP 98.2
[2023-08-01] MEDS ORDERED: TESSALON P100 MG/CAP PO (22:37)
[2023-08-01 22:56] VITALS: BP 148/70; PULSE 76
== END 2023-08-01 22:56 | disposition home or self-care (01) ==
LOC: COL.ER 20:04
DX: J06.9 Acute upper respiratory infection, unspecified (principal); I48.91 Unspecified atrial fibrillation; Z87.891 Personal history of nicotine dependence; Z79.01 Long term (current) use of anticoagulants

== ENCOUNTER → 2023-10-15 | Outpatient (CLI) | payer MEDICARE, BC ==
[~2023-10-15] MED LIST changes: +Iohexol 300 - 100 ML VIAL IV ONE; +NS 100 ML IV SCH; +TESSALON P100 MG/CAP PO
== END ==
LOC: COL.RAD 08:41
DX: C83.38 Diffuse large B-cell lymphoma, lymph nodes of multiple sites (principal); I51.7 Cardiomegaly
CPT/HCPCS: J1644; Q9967